=== PATIENT | male | born 1990 | race American Indian/Alaskan Native ===

== ENCOUNTER 2017-01-26 13:44 | Emergency (ER) | payer SELFPAY ==
[2017-01-26] MEDS ORDERED: TORADOL IM ONE (16:35)
[2017-01-26] MEDS ORDERED: NORCO 5/325 PO ONE (16:35)
[2017-01-26] MEDS ORDERED: ZOFRAN ODT PO ONE (16:35)
--- NOTE | 2017-01-26 16:36 | Emergency Department Report ---
ED Back Pain/Injury HPI - General Chief Complaint: Back Pain/Injury Stated Complaint: BACK PAIN Time Seen by Provider: 01/26/17 16:34 Source: patient Limitations: No Limitations - History of Present Illness Initial Comments: 26-year-old male presents with complaint of lower back pain for 4 days. Patient states that he was at work moving a heavy pallet and subsequently developed pain in his lower back worse on left than right side. Occasionally spastic. Patient states that twisting and turning and bending over is difficult. Denies any direct trauma no falls no saddle paresthesias no bladder or bowel incontinence no erectile dysfunction. Patient is visibly ambulatory without assistance. Denies fevers chills dysuria or increased urinary frequency. Patient is awake alert and oriented 3 nontoxic appearing. States he took Motrin once a day ago with minimal relief of his pain. MD Complaint: back pain Onset/Timin -: days(s) Similar Symptoms Previously: No Place: work Radiation: buttocks Severity: moderate Severity scale (0 -10): 6 Quality: sharp, aching Consistency: intermittent Improves With: immobilization, supine Worsens With: movement, walking Context: while lifting, turning/twisting, bending Associated Symptoms: denies other symptoms - Related Data Previous Rx's Medication Instructions Recorded Last Taken Type Cyclobenzaprine [Flexeril] 10 mg PO TID PRN #15 tablet 01/26/17 Unknown Rx Naproxen [Naprosyn TAB] 500 mg PO BID PRN #30 tablet 01/26/17 Unknown Rx Allergies Allergy/AdvReac Type Severity Reaction Status Date / Time No Known Allergies Allergy Verified 01/26/17 16:52 ED Review of Systems ROS: Stated complaint: BACK PAIN Other details as noted in HPI Constitutional: denies: chills, fever Eyes: denies: eye pain, eye discharge, vision change ENT: denies: ear pain, throat pain Respiratory: denies: cough, shortness of breath, wheezing Cardiovascular: denies: chest pain, palpitations Endocrine: no symptoms reported Gastrointestinal: denies: abdominal pain, nausea, diarrhea Genitourinary: denies: urgency, dysuria Musculoskeletal: back pain (4 days of persistent lower back pain). denies: joint swelling, arthralgia Skin: denies: rash, lesions Neurological: denies: headache, weakness, paresthesias Psychiatric: denies: anxiety, depression Hematological/Lymphatic: denies: easy bleeding, easy bruising ED Past Medical Hx - Past Medical History Previous Medical History?: No - Surgical History Past Surgical History?: No - Medications Home Medications: Home Medications Medication Instructions Recorded Confirmed Last Taken Type Cyclobenzaprine [Flexeril] 10 mg PO TID PRN #15 tablet 01/26/17 Unknown Rx Naproxen [Naprosyn TAB] 500 mg PO BID PRN #30 tablet 01/26/17 Unknown Rx ED Physical Exam - General Limitations: No Limitations General appearance: alert, in no apparent distress - Head Head exam: Present: atraumatic, normocephalic - Eye Eye exam: Present: normal appearance, PERRL, EOMI - ENT ENT exam: Present: mucous membranes moist - Neck Neck exam: Present: normal inspection, full ROM - Respiratory Respiratory exam: Present: normal lung sounds bilaterally. Absent: respiratory distress - Cardiovascular Cardiovascular Exam: Present: regular rate, normal rhythm. Absent: systolic murmur, diastolic murmur, rubs, gallop - GI/Abdominal GI/Abdominal exam: Present: soft, normal bowel sounds - Rectal Rectal exam: Present: deferred, normal rectal tone - Extremities Exam Extremities exam: Present: normal inspection - Back Exam Back exam: Present: normal inspection, tenderness (patient has some reproducible tenderness along left lower latissimus region and some palpable muscle spasm), muscle spasm, paraspinal tenderness (patient has left-sided paraspinal discomfort on deep palpation no midline tenderness in cervical thoracic or lumbar spine no rash noted on back on clinical exam) - Expanded Back Exam Expanded Back exam: Negative Straight Leg Raising: Left, Right (I get a straight leg raise test bilaterally) 1 - Some pain on palpation here - Neurological Exam Neurological exam: Present: alert, oriented X3, CN II-XII intact, normal gait - Expanded Neurological Exam Expanded Patient oriented to: Present: person, place, time Sensory exam: Upper Extremity Light Touch: Normal, Lower Extremity Light Touch: Normal Motor strength exam: RUE: 5, LUE: 5, RLE: 5, LLE: 5 DTR: tricep (R): 3+, tricep (L): 3+, knee (R): 3+, knee (L): 3+ Best Eye Response ([place]): (4) open spontaneously Best Motor Response ([place]): (6) obeys commands Best Verbal Response ([place]): (5) oriented [place] Total: 15 - Psychiatric Psychiatric exam: Present: normal affect, normal mood - Skin Skin exam: Present: warm, dry, intact, normal color. Absent: rash ED Course Vital Signs 01/26/17 01/26/17 13:49 16:50 Temperature 98.1 F Pulse Rate 84 Respiratory 18 20 Rate Blood Pressure 112/77 O2 Sat by Pulse 100 Oximetry ED Medical Decision Making - Medical Decision Making A/P: Lower back strain, musculoskeletal lower back pain 1-naproxen and Flexeril when necessary 2-follow-up with primary care and orthopedics 3- will refer to PMD as pt does not have one and to ortho for f/u and outpt imaging, no neurovascular deficits on physical exam, no saddle paraesthesias, no bladder overflow, no bowel incontience, strength 5 out of 5 both lower extremities, distal reflexes are intact, rectal tone is intact. Pt denies any fever, chill, dysruia or IV drug use. No urinary symptoms and has reproducible pain with movement of lower back including flexion and lateral rotation and on deep palpation of left paraspinal muscle region 4- pt is independently ambulatory upon discharge Critical care attestation.: If time is entered above; I have spent that time in minutes in the direct care of this critically ill patient, excluding procedure time. ED Disposition Clinical Impression: Lower back pain Qualifiers: Chronicity: acute Back pain laterality: left Sciatica presence: without sciatica Qualified Code(s): M54.5 - Low back pain Low back strain Qualifiers: Encounter type: initial encounter Qualified Code(s): S39.012A - Strain of muscle, fascia and tendon of lower back, initial encounter Disposition: TO HOME OR SELFCARE Is pt being admited?: No Does the pt Need Aspirin: No Condition: Stable Instructions: Low Back Strain (ED), Acute Low Back Pain (ED), Back Pain (ED) Prescriptions: Cyclobenzaprine [Flexeril] 10 mg PO TID PRN #15 tablet PRN Reason: Muscle Spasm Naproxen [Naprosyn TAB] 500 mg PO BID PRN #30 tablet PRN Reason: Pain Referrals: [facility] [Provider Group] - 3-5 Days [facility] [Outside] - 3-5 Days [facility] [Outside] - 3-5 Days Forms: Work/School Release Form(ED), Accompanied Note Time of Disposition: 18:07
--- NOTE | 2017-01-26 18:15 | XRay Report ---
FINAL REPORT EXAM: XR SPINE LUMBOSACRAL 2-3V HISTORY: lower back pain s/p lifting heavy objects TECHNIQUE: 3 views of the lumbar spine PRIORS: None. FINDINGS: Vertebral compression fracture: None Anterolisthesis: None Retrolisthesis: None Disc narrowing: None Degenerative change: Slight at the lower facet joints IMPRESSION: No acute skeletal pathology Slight facet joint degenerative change
[2017-01-26] MEDS ORDERED: LIDOCAINE VISCOUS 2% PO ONE (18:18)
[2017-01-26 18:21] VITALS: BP 120/74
== END 2017-01-26 18:20 | disposition home or self-care (01) ==
LOC: ED 13:44
DX: S39.012A Strain of muscle, fascia and tendon of lower back, initial encounter (principal); M54.5 Low back pain; X58.XXXA Exposure to other specified factors, initial encounter; Y93.9 Activity, unspecified; Y99.9 Unspecified external cause status; Y92.89 Other specified places as the place of occurrence of the external cause
CPT/HCPCS: 72100; 96372; 99283; J1885; Q0162